=== PATIENT | female | born 1990 | race Caucasian/White ===

== ENCOUNTER 2023-10-15 00:25 | Inpatient (IN) | payer SELFPAY ==
[~2023-10-15] VITALS: Ht 160 cm; Wt 72.6 kg
[2023-10-15] MEDS ORDERED: NALBUPHINE 10 MG/ML AMP IVP PRN (01:20)
[2023-10-15] MEDS ORDERED: METHYLERGONOVINE 0.2 MG/ML AMP IM PRN ×2 (01:20→19:35)
[2023-10-15] MEDS ORDERED: LACTATED RINGERS 500 ML IV ONE (01:20)
[2023-10-15] MEDS ORDERED: OXYTOCIN 20 UNITS in LACTATED RINGERS 1,000 ML IV SCH (01:25)
[2023-10-15 01:30] VITALS: BP 118/94; PULSE 94; RESP 18; TEMP 98.1
[2023-10-15 01:45] LABS: BASOPHILS % (AUTO) 0.3 % (0.0-2.0); EOSINOPHILS # (AUTO) 0.2 K/uL (0-0.4); EOSINOPHILS % (AUTO) 1.5 % (0.0-4.0); HEMATOCRIT 36.6 % (36-48); HEMOGLOBIN 11.7 g/dL (12.0-16.0); LYMPHOCYTES % (AUTO) 21.2 % (20.5-51.1); MEAN CORPUSCULAR HEMOGLOBIN 26 pg (27-31); MEAN CORPUSCULAR HGB CONC 32 g/dL (33-37); MEAN CORPUSCULAR VOLUME 82.3 fL (80-94); MONOCYTES # (AUTO) 1.1 K/uL (0.8-1.0); MONOCYTES % (AUTO) 7.6 % (1.7-9.3); NEUTROPHILS # (AUTO) 9.8 K/uL (1.8-7.7); NEUTROPHILS % (AUTO) 69.4 % (42.2-75.2); PLATELET COUNT (AUTO) 234 K/uL (140-450); RED BLOOD CELL COUNT(AUTO) 4.45 MIL/uL (4.20-5.40); RED CELL DISTRIBUTION WIDTH 15.4 % (11.6-13.7); WHITE BLOOD COUNT (AUTO) 14.2 K/uL (4.8-10.8)
[2023-10-15 02:09] LABS: ALBUMIN 2.4 g/dL (3.4-5.0); ANION GAP 12.2 (8-16); CALCIUM 8.7 mg/dL (8.5-10.1); CARBON DIOXIDE 23.6 mmol/L (21-32); CREATININE 0.8 mg/dL (0.6-1.3); INR 0.87 (0.8-1.2); PARTIAL THROMBOPLASTIN TIME 26.5 secs (22-35.6); POTASSIUM 3.8 mmol/L (3.5-5.1); PROTHROMBIN TIME 9.2 secs (10.8-13.4); TOTAL BILIRUBIN 0.6 mg/dL (0.0-1.0); TOTAL PROTEIN, SERUM 7.1 g/dL (6.4-8.2)
[2023-10-15 02:16] LABS: APPEARANCE,URINE CLEAR (CLEAR); BILIRUBIN,URINE NEGATIVE (NEGATIVE); BLOOD, URINE NEGATIVE (NEGATIVE); COLOR,URINE YELLOW (YELLOW); LEUKOCYTE ESTERASE ,URINE NEGATIVE (NEGATIVE); NITRITE, URINE NEGATIVE (NEGATIVE); PROTEIN,URINE NEGATIVE (NEGATIVE); UGLUCOSE NEGATIVE (NEGATIVE); UROBILINOGEN,URINE 0.2 EU/dL (0.2 - 1)
[2023-10-15] MEDS: LACTATED RINGERS 1,000 ML IV SCH ×4 (02:17→13:27)
[2023-10-15] MEDS ORDERED: OXYTOCIN 20 UNITS/LR PREMIX 1,000 ML IV ONE ×2 (02:19→20:40)
[2023-10-15] MEDS ORDERED: FERR-212 PO (03:01)
[2023-10-15] MEDS ORDERED: PNV91TAB10 PO (03:01)
[2023-10-15] MEDS ORDERED: ROPIVACAINE 0.2%/NS PREMIX 200 ML EPI SCH (05:15)
[2023-10-15] MEDS ORDERED: CITRIC ACID/SODIUM CITRATE 30 ML UDC PO ONE (19:30)
[2023-10-15] MEDS ORDERED: IBUPROFEN 800 MG TAB PO PRN (19:35)
[2023-10-15] MEDS ORDERED: KETOROLAC 30 MG/ML VIAL IVP PRN (19:35)
[2023-10-15] MEDS ORDERED: TEMAZEPAM 15 MG CAP PO PRN (19:35)
[2023-10-15] MEDS ORDERED: oxyCODONE/APAP 5/325 MG 1 TAB TAB PO PRN (19:35)
[2023-10-15] MEDS ORDERED: ceFAZolin 2,000 MG VIAL ONE (19:59)
[2023-10-15] MEDS ORDERED: MORPHINE PRES FREE 10 MG/10 ML AMP IV ONE (20:43)
[2023-10-15] MEDS ORDERED: LIDOCAINE MPF 2% 100 MG/5 ML VIAL INJ ONE ×2 (20:49→20:51)
[2023-10-15] MEDS ORDERED: DOCUSATE SOD/SENNA 50/8.6 MG 1 TAB PO SCH (21:00)
[2023-10-16] MEDS: ONDANSETRON 4 MG/2 ML VIAL IVP PRN ×2 (02:36→06:56)
[2023-10-16] MEDS ORDERED: KETOROLAC 30 MG/ML VIAL IVP PRN (03:30)
[2023-10-16] MEDS ORDERED: OXYTOCIN 20 UNITS/LR PREMIX 1,000 ML IV ONE ×2 (05:08→14:35)
[2023-10-16 05:48] LABS: HEMATOCRIT 30.6 % (36-48); HEMOGLOBIN 9.9 g/dL (12.0-16.0); MEAN CORPUSCULAR HEMOGLOBIN 27 pg (27-31); MEAN CORPUSCULAR HGB CONC 32 g/dL (33-37); MEAN CORPUSCULAR VOLUME 81.9 fL (80-94); PLATELET COUNT (AUTO) 186 K/uL (140-450); RED BLOOD CELL COUNT(AUTO) 3.73 MIL/uL (4.20-5.40); RED CELL DISTRIBUTION WIDTH 15.8 % (11.6-13.7)
[2023-10-16] MEDS: OXYTOCIN 20 UNITS in LACTATED RINGERS 1,000 ML IV SCH ×2 (05:53→14:42)
[2023-10-16 06:08] LABS: WHITE BLOOD COUNT (AUTO) 31.1 K/uL (4.8-10.8)
[2023-10-16 06:29] LABS: LYMPHOCYTES % (MANUAL) 4 % (20-46); MONOCYTES % (MANUAL) 5 % (5-12)
[2023-10-16] MEDS: SIMETHICONE 80 MG TAB.CHEW PO PRN ×2 (12:25→18:47)
[2023-10-16] MEDS ORDERED: CAMERA MC ONE (19:29)
[2023-10-16] MEDS: oxyCODONE/APAP 5/325 MG 1 TAB TAB PO PRN (22:43)
[2023-10-17] MEDS ORDERED: FLU VACCINE QS2023-24 0.5 ML SYR IMVAC ONE (05:20)
[2023-10-17 06:29] LABS: BASOPHILS % (AUTO) 0.2 % (0.0-2.0); EOSINOPHILS # (AUTO) 0.2 K/uL (0-0.4); HEMATOCRIT 27.3 % (36-48); HEMOGLOBIN 8.8 g/dL (12.0-16.0); LYMPHOCYTES # (AUTO) 2.8 K/uL (2.5-16.5); LYMPHOCYTES % (AUTO) 14.7 % (20.5-51.1); MEAN CORPUSCULAR HEMOGLOBIN 26 pg (27-31); MEAN CORPUSCULAR HGB CONC 32 g/dL (33-37); MEAN CORPUSCULAR VOLUME 81.9 fL (80-94); MONOCYTES % (AUTO) 5.3 % (1.7-9.3); NEUTROPHILS # (AUTO) 14.9 K/uL (1.8-7.7); NEUTROPHILS % (AUTO) 78.8 % (42.2-75.2); PLATELET COUNT (AUTO) 169 K/uL (140-450); RED BLOOD CELL COUNT(AUTO) 3.33 MIL/uL (4.20-5.40); RED CELL DISTRIBUTION WIDTH 15.2 % (11.6-13.7); WHITE BLOOD COUNT (AUTO) 18.9 K/uL (4.8-10.8)
[2023-10-17] MEDS: oxyCODONE/APAP 5/325 MG 1 TAB TAB PO PRN (08:32)
== END 2023-10-17 16:10 | disposition home or self-care (01) | DRG 788 ==
LOC: MLD 00:25 → MFCC 22:40
PROVIDERS: ADMIT Obstetrics & Gynecology; ATTEND Obstetrics & Gynecology
PROC: 10D00Z1 Extraction of Products of Conception, Low, Open Approach (ICD-10-PCS; principal; 2023-10-15 20:15)
DX: O62.0 Primary inadequate contractions (principal); Z37.0 Single live birth; Z3A.39 39 weeks gestation of pregnancy; Z20.822 Contact with and (suspected) exposure to COVID-19
CPT/HCPCS: 36415; 51702; 80053; 81003; 85025; 85610; 85730; 86592; 86886; 86900; 86901; J0690; J1885; J2001; J2210; J2270; J2405; J2590; J2795; J7060; J7120